=== PATIENT | male | born 1975 | race Caucasian/White ===

== ENCOUNTER 2017-02-09 23:08 | Emergency (ER) | payer MEDICAID ==
[~2017-02-09] VITALS: Ht 175.3 cm; Wt 83.9 kg
[2017-02-10] MEDS ORDERED: LIDO:MAALOX:DONNATAL 1:1:1 15 ML SINGLE DOSE SWSW ONE
[2017-02-10 00:02] LABS: BASO % 0 % (0-3); EOS % 3 % (0-3); HEMATOCRIT 36.7 % (39.0-53.0); HEMOGLOBIN 12.3 g/dL (13.0-17.5); LYMPH # 1.9 x10^3/uL (1.0-4.8); LYMPH % 32 % (24-48); MEAN CORPUSCULAR HEMOGLOBIN 31 pg (25-35); MEAN CORPUSCULAR HGB CONC 34 g/dL (31-37); MEAN CORPUSCULAR VOLUME 92 fL (79-100); MONO % 9 % (0-9); NEUT % 55 % (31-73); PLATELET COUNT 159 x10^3/uL (140-400); RED BLOOD COUNT 4.01 x10^6/uL (4.30-5.70); RED CELL DISTRIBUTION WIDTH 16.5 % (11.5-14.5); WHITE BLOOD COUNT 5.9 x10^3/uL (4.0-11.0)
[2017-02-10 00:13] LABS: CREATININE 0.9 mg/dL (0.7-1.3); POTASSIUM 3.5 mmol/L (3.5-5.1)
[2017-02-10 00:20] LABS: ALBUMIN 3.1 g/dL (3.4-5.0); ALBUMIN/GLOBULIN RATIO 0.9 (1.0-1.7); TOTAL BILIRUBIN 0.3 mg/dL (0.2-1.0); TOTAL PROTEIN 6.6 g/dL (6.4-8.2)
--- NOTE | 2017-02-10 00:58 | PHYS DOC ---
Past Medical History Past Medical History: Alcoholism, Anxiety, Other Additional Past Medical Histor: torn esophagus Past Surgical History: No Surgical History Alcohol Use: Heavy Drug Use: None Adult General Chief Complaint Chief Complaint: CHEST PAIN HPI HPI Patient is a 41 year old male with chest pain since 6pm. he ate chicken and potatoes tonight. he takes omeprazole daily since having an esophageal tear. he has not been vomiting. no fever. no recent illnesses. no SOA, no exertional chest pain. no cardiac hx. smokes 1/2-1 ppd Review of Systems Review of Systems Constitutional: Denies fever or chills [] Eyes: Denies change in visual acuity, redness, or eye pain [] HENT: Denies nasal congestion or sore throat [] Respiratory: Denies cough or shortness of breath [] Cardiovascular: chest pain, anxiety GI: Denies abdominal pain, nausea, vomiting, bloody stools or diarrhea [] : Denies dysuria or hematuria [] Musculoskeletal: Denies back pain or joint pain [] Integument: Denies rash or skin lesions [] Neurologic: Denies headache, focal weakness or sensory changes [] Endocrine: Denies polyuria or polydipsia [] Current Medications Current Medications Current Medications Medications (Trade) Dose Ordered Sig/Emelina Start Time Stop Time Status Last Admin Dose Admin Multi-Ingredient Mouthwash/Gargle (Gi Cocktail Single Dose) 15 ml 1X ONCE 02/10/17 00:00 02/10/17 00:01 DC Allergies Allergies Allergies Coded Allergies Type Severity Reaction Last Updated Verified No Known Drug Allergies 02/09/17 No Physical Exam Physical Exam Constitutional: Well developed, well nourished, no acute distress, non-toxic appearance. [] HENT: Normocephalic, atraumatic, bilateral external ears normal, oropharynx moist, no oral exudates, nose normal. [] Eyes: PERRLA, EOMI, conjunctiva normal, no discharge. [] Neck: Normal range of motion, no tenderness, supple, no stridor. [] Cardiovascular:Heart rate regular rhythm, no murmur very tender to palpate chest and reproducible Lungs & Thorax: Bilateral breath sounds clear to auscultation [] Abdomen: Bowel sounds normal, soft, tender to palpate epigastric area, no masses , no pulsatile masses. [] Skin: Warm, dry, no erythema, no rash. [] Back: No tenderness, no CVA tenderness. [] Extremities: No tenderness, no cyanosis, no clubbing, ROM intact, no edema. [] Neurologic: Alert and oriented X 3, normal motor function, normal sensory function, no focal deficits noted. [] Psychologic: Affect normal, judgement normal, mood normal. [] Current Patient Data Vital Signs Vital Signs Date Time Temp Pulse Resp B/P (MAP) Pulse Ox O2 Delivery O2 Flow Rate FiO2 02/09/17 23:11 98.1 68 18 113/86 (95) 99 Room Air 98.1 Lab Values Laboratory Tests Test 02/09/17 23:27 White Blood Count 5.9 x10^3/uL (4.0-11.0) Red Blood Count 4.01 x10^6/uL (4.30-5.70) L Hemoglobin 12.3 g/dL (13.0-17.5) L Hematocrit 36.7 % (39.0-53.0) L Mean Corpuscular Volume 92 fL (79-100) Mean Corpuscular Hemoglobin 31 pg (25-35) Mean Corpuscular Hemoglobin Concent 34 g/dL (31-37) Red Cell Distribution Width 16.5 % (11.5-14.5) H Platelet Count 159 x10^3/uL (140-400) Neutrophils (%) (Auto) 55 % (31-73) Lymphocytes (%) (Auto) 32 % (24-48) Monocytes (%) (Auto) 9 % (0-9) Eosinophils (%) (Auto) 3 % (0-3) Basophils (%) (Auto) 0 % (0-3) Neutrophils # (Auto) 3.3 x10^3uL (1.8-7.7) Lymphocytes # (Auto) 1.9 x10^3/uL (1.0-4.8) Monocytes # (Auto) 0.5 x10^3/uL (0.0-1.1) Eosinophils # (Auto) 0.2 x10^3/uL (0.0-0.7) Basophils # (Auto) 0.0 x10^3/uL (0.0-0.2) Sodium Level 136 mmol/L (136-145) Potassium Level 3.5 mmol/L (3.5-5.1) Chloride Level 100 mmol/L (98-107) Carbon Dioxide Level 26 mmol/L (21-32) Anion Gap 10 (6-14) Blood Urea Nitrogen 11 mg/dL (8-26) Creatinine 0.9 mg/dL (0.7-1.3) Estimated GFR (Cockcroft-Gault) 93.0 BUN/Creatinine Ratio 12 (6-20) Glucose Level 100 mg/dL (70-99) H Calcium Level 9.0 mg/dL (8.5-10.1) Total Bilirubin 0.3 mg/dL (0.2-1.0) Aspartate Amino Transferase (AST) 17 U/L (15-37) Alanine Aminotransferase (ALT) 15 U/L (16-63) L Alkaline Phosphatase 72 U/L (46-116) Troponin I Quantitative < 0.017 ng/mL (0.000-0.055) Total Protein 6.6 g/dL (6.4-8.2) Albumin 3.1 g/dL (3.4-5.0) L Albumin/Globulin Ratio 0.9 (1.0-1.7) L Laboratory Tests 02/09/17 23:27 Laboratory Tests 02/09/17 23:27 EKG EKG time 2323 HR 56 no stemi[] Radiology/Procedures Radiology/Procedures NAD[] Course & Med Decision Making Course & Med Decision Making Pertinent Labs and Imaging studies reviewed. (See chart for details) pt feels better after GI cocktail. he took his klonopin tonight. he has no cardiac hx. he has not had exertional or intermittant chest pain. he has had 6 hours of constant pain with no ekg or trop change. [] Dragon Disclaimer Dragon Disclaimer This electronic medical record was generated, in whole or in part, using a voice recognition dictation system. Departure Departure Disposition: 01 HOME, SELF-CARE Condition: GOOD Referrals: UNKNOWN PCP NAME (PCP) Patient Instructions: Chest Pain (Nonspecific) Additional Instructions: continue your prilosec. keep foods very bland. return if symptoms worsen. see your doctor in 3-4 days for re-evaluation RADHA FONTANEZ MD Feb 10, 2017 00:58
[2017-02-10 01:54] VITALS: BP 114/84
--- NOTE | 2017-02-10 06:24 | EKG ---
[facility] [address] [place] [address] Test Date: 2017-02-09 Test Time: 23:23:33 Pat Name: HUBERT SMITH Department: Room: Gender: M [employer] Farmer: : 1975 Requested By: RADHA FONTANEZ Order Number: [id number] Reading MD: Brie Banks Measurements Intervals [place] Rate: 56 P: 14 WV: 136 QRS: 22 QRSD: 90 T: 20 QT: 422 QTc: 410 Interpretive Statements SINUS RHYTHM NORMAL EKG Electronically Signed On 02-13-2017 12:22:52 CDT by Brie Banks
--- NOTE | 2017-02-10 07:17 | RAD ---
Portable chest, 02/10/2017: History: Chest pain The heart size and pulmonary vascularity are normal. No pulmonary infiltrates are seen. There is no evidence of pleural fluid. There is an old nonunited fracture of the distal left clavicle. IMPRESSION: No acute cardiopulmonary abnormality is detected.
== END 2017-02-10 02:10 | disposition home or self-care (01) ==
LOC: ER 23:08
DX: R07.9 Chest pain, unspecified (principal); F41.9 Anxiety disorder, unspecified; F10.20 Alcohol dependence, uncomplicated; F17.200 Nicotine dependence, unspecified, uncomplicated
CPT/HCPCS: 36415; 71010; 80053; 84484; 85025; 93005; 99285-25